=== PATIENT | female | born 1960 | race Caucasian/White ===

== ENCOUNTER 2016-06-24 20:16 | Emergency (ER) | payer OTHER ==
[~2016-06-24] VITALS: Ht 175.3 cm; Wt 78.0 kg
[~2016-06-24 20:16] MED LIST: CYMB60CA PO; ESTR1TAB12 PO; IBUP-232 PO
[2016-06-24 20:18] VITALS: BP 145/97; PULSE 98; RESP 16; TEMP 99; O2SAT 98
--- NOTE | 2016-06-24 20:28 | PD ---
HPI Chief Complaint: Cold / Flu Symptoms Time Seen by Provider: 20:28 Travel History International Travel<30 days: No Contact w/Intl Traveler<30days: No Traveled to known affect area: No History of Present Illness HPI 55 year-old female is no significant medical history presents to emergency department for evaluation. Patient states that she has had a cough and chest congestion worsening over the last 12 days. She went to the urgent care and was placed on a short course of oral steroids and given an albuterol inhaler. She states that the cough has persisted, gotten worse, and is now productive of a yellow sputum. She has had subjective fever and chills. Denies any chest a nor tightness. No nausea or vomiting. Patient does smoke tobacco cigarettes one pack per day typically, but has only been able to smoke a tobacco cigarettes due to her symptoms. She has no other symptoms reported this time. [facility] Past Medical History Medical History: Denies Significant Hx Social History Alcohol Use: Yes Tobacco Use: Yes Allergies-Medications (Allergen,Severity, Reaction): Coded Allergies: No Known Allergies (Unverified , 06/24/16) Reported Meds & Prescriptions Reported Meds & Active Scripts Active Proair Hfa 8.5 GM Inh (Albuterol Sulfate) 90 Mcg/Act Aer 2 Puff INH Q4-6H PRN 108 mcg/actuation Medrol Dosepak (Methylprednisolone) 4 Mg Dspk 4 Mg PO DIRECTED Per Pharmacist direction Zithromax Z-Kem (Azithromycin) 250 Mg Dspk 250 Mg PO DIRECTED 500 MG (2 tabs) day 1, then 1 tab days 2-5. Motrin (Ibuprofen) 600 Mg Tab 600 Mg PO QID GIVE WITH FOOD Reported Estrace (Estradiol) 1 Mg Tab 1 Mg PO DAILY Cymbalta (Duloxetine HCl) 60 Mg Cap 120 Mg PO DAILY Review of Systems Except as stated in HPI: all other systems reviewed are Neg Physical Exam Narrative GENERAL: Well-nourished female patient, ambulatory and in no acute distress SKIN: Focused skin assessment warm/dry. HEAD: Atraumatic. Normocephalic. EYES: Pupils equal and round. No scleral icterus. No injection or drainage. ENT: No nasal bleeding or discharge. Mucous membranes pink and moist. NECK: Trachea midline. No JVD. CARDIOVASCULAR: Regular rate and rhythm. No murmur appreciated. RESPIRATORY: No accessory muscle use. Coarse throughout, inspiratory wheeze. Breath sounds equal bilaterally. GASTROINTESTINAL: Abdomen soft, non-tender, nondistended. Hepatic and splenic margins not palpable. MUSCULOSKELETAL: No obvious deformities. No clubbing. No cyanosis. No edema. NEUROLOGICAL: Awake and alert. No obvious cranial nerve deficits. Motor grossly within normal limits. Normal speech. PSYCHIATRIC: Appropriate mood and affect; insight and judgment normal. Data Data Last Documented VS Vital Signs Date Time Temp Pulse Resp B/P Pulse Ox O2 Delivery O2 Flow Rate FiO2 06/24/16 20:18 99.0 98 16 145/97 98 Room Air Orders Azithromycin (Zithromax) (06/24/16 20:30) Dexamethasone Inj (Decadron Inj) (06/24/16 20:30) Albuterol-Ipratropium Neb (Duoneb Neb) (06/24/16 20:30) [facility] Medical Decision Making Medical Screen Exam Complete: Yes Emergency Medical Condition: Yes Medical Record Reviewed: Yes Differential Diagnosis Bronchitis versus bronchiolitis versus pneumonia versus influenza versus COPD exacerbation Narrative Course 55-year-old female presents to the emergency department for evaluation. Patient does have coarse breath sounds with an inspiratory wheeze. She is given Decadron and a breathing treatment here. Patient is also given her first dose of azithromycin. Patient has had her symptoms for 12 days, been treated symptomatically with worsening of symptoms. If her history of tobacco cigarette smoking, she likely has some form of COPD and this may be more of a COPD exacerbation however the patient will be started on oral antibiotics. She is encouraged to follow-up with primary care provider and return immediately with any acute worsening of symptoms. Diagnosis Primary Impression: Upper respiratory infection Qualified Code: J06.9 - Upper respiratory tract infection, unspecified type Referrals: Primary Care Physician Patient Instructions: General Instructions, Upper Respiratory Infection (ED) Additional Instructions: Humidified air may help to alleviate symptoms Follow up with a primary care provider It is recommended that you stop smoking tobacco cigarettes Take antibiotic until it is all gone. Return to ED with acute worsening of symptoms Med/Other Pt SpecificInfo: Prescription(s) given Scripts Albuterol 8.5 GM Inh (Proair Hfa 8.5 GM Inh)90 Mcg/Act Aer2 Puff INH Q4-6H PRN ( SHORTNESS OF BREATH) #1 INHALER Ref 0 108 mcg/actuation Prov:Nurys Baxter 06/24/16 Methylprednisolone Dosepak (Medrol Dosepak)4 Mg Dspk4 Mg PO DIRECTED #1 DSPK Ref 0 Per Pharmacist direction Prov:Nurys Baxter 06/24/16 Azithromycin (Zithromax Z-Kem)250 Mg Cbpr716 Mg PO DIRECTED #1 DSPK Ref 0 500 MG (2 tabs) day 1, then 1 tab days 2-5. Prov:Nurys Baxter 06/24/16 Disposition: 01 DISCHARGE HOME Condition: Stable Nurys Baxter June 24, 2016 20:28
[2016-06-24] MEDS ORDERED: DEXAMETHASONE SOD PHOS 20 MG/5 ML VIAL IM ONE (20:30)
[2016-06-24] MEDS ORDERED: AZITHROMYCIN 250 MG TAB PO ONE (20:30)
[2016-06-24] MEDS ORDERED: RESP: ALBUTEROL 2.5 MG/IPRATROPIUM 0.5 MG NEB (SCH) NEB ONE (20:30)
[2016-06-24] MEDS ORDERED: ALBUAER3 INH (20:33)
[2016-06-24] MEDS ORDERED: ZITHTAB PO (20:33)
[2016-06-24] MEDS ORDERED: MEDR4PAK PO (20:33)
== END 2016-06-25 02:05 | disposition home or self-care (01) ==
LOC: NEPK 20:16
DX: J06.9 Acute upper respiratory infection, unspecified (principal); F17.210 Nicotine dependence, cigarettes, uncomplicated
CPT/HCPCS: 94664; 96372; 99283; J1100